=== PATIENT | female | born 1935 | race Caucasian/White ===

== ENCOUNTER 2023-04-23 05:52 | Day surgery (SDC) | payer OTHER, MEDICARE ==
[~2023-04-23] VITALS: Ht 160 cm; Wt 72.6 kg
[2023-04-23 06:40] VITALS: O2SAT 97
[2023-04-23] MEDS ORDERED: CEFAZOLIN SOD 2 GM in D5W 50 ML IV ONE (07:00)
[2023-04-23] MEDS ORDERED: ROCURONIUM BROMIDE 10 MG/ML (ZEMURON) ONE (07:40)
[2023-04-23] MEDS ORDERED: WATER FOR INJECTION,STERILE 20 ML VIAL IV ONE (07:40)
[2023-04-23] MEDS ORDERED: NS 100 ML BAG ONE (07:40)
[2023-04-23] MEDS ORDERED: SEVOFLURANE 15 MIN GAS INH ONE (07:40)
[2023-04-23] MEDS ORDERED: MIDAZOLAM HCL/PF 2 MG/2 ML SYRINGE ONE (07:40)
[2023-04-23] MEDS ORDERED: BUPIVACAINE /PF 0.25% 30 ML VIAL INJ ONE (07:40)
[2023-04-23] MEDS ORDERED: fentaNYL CITRATE/PF 100 MCG/2 ML AMP ONE (07:40)
[2023-04-23] MEDS ORDERED: PROPOFOL 200MG/ 20ML VIAL (DIPRIVAN) IV ONE (07:40)
[2023-04-23] MEDS ORDERED: DEXAMETHASONE SOD PHOSPHATE 4 MG/ML VIAL ONE (07:40)
[2023-04-23] MEDS ORDERED: SUGAMMADEX SODIUM 200 MG/2 ML VIAL IV ONE (07:40)
[2023-04-23] MEDS ORDERED: LR 1,000 ML IV SCH (08:45)
[2023-04-23] MEDS ORDERED: KETOROLAC TROMETHAMINE 30 MG VIAL IVP PRN (08:45)
[2023-04-23] MEDS ORDERED: HYDROmorphone 1 MG/ML INJ. CARTRIDGE IVP PRN (08:45)
[2023-04-23] MEDS ORDERED: ONDANSETRON HCL 4 MG/2 ML VIAL IVP PRN (08:45)
[2023-04-23] MEDS ORDERED: MEPERIDINE HCL/PF 25 MG/ML DISP.SYRIN IVP PRN (08:45)
[2023-04-23] MEDS ORDERED: D5/0.45 NS 1,000 ML IV SCH (09:00)
[2023-04-23] MEDS ORDERED: HYDROcodone/ACETAMIN 5-325 MG TAB (NORCO/ VICODIN) PO PRN ×2 (09:00)
[2023-04-23] MEDS ORDERED: ONDANSETRON HCL 4 MG/2 ML VIAL ONE (10:38)
[2023-04-23 11:45] VITALS: BP_SYST 135; PULSE 69; RESP 20
== END 2023-04-23 11:40 | disposition home or self-care (01) ==
LOC: SDS 05:52
PROVIDERS: ATTEND Colon & Rectal Surgery
DX: K80.12 Calculus of gallbladder with acute and chronic cholecystitis without obstruction (principal); I12.9 Hypertensive chronic kidney disease with stage 1 through stage 4 chronic kidney disease, or unspecified chronic kidney disease; N18.30 Chronic kidney disease, stage 3 unspecified; M81.0 Age-related osteoporosis without current pathological fracture; E78.5 Hyperlipidemia, unspecified; M85.80 Other specified disorders of bone density and structure, unspecified site; G25.81 Restless legs syndrome; Z79.899 Other long term (current) drug therapy
CPT/HCPCS: 87081; 47563; 74300; 88304; J3490 ×2; J0690; J1100; J3465; J2405; J2704; J3010; Q9967; J7060; J7120; C1758; C1727; 76000